=== PATIENT | male | born 1970 | race Caucasian/White ===

== ENCOUNTER 2019-05-15 22:00 | Inpatient (IN) | payer MEDICAID ==
[~2019-05-15] VITALS: Ht 167.6 cm; Wt 126.3 kg
[2019-05-15 22:08] VITALS: Ht 167.6 cm; Wt 126.3 kg
--- NOTE | 2019-05-15 22:34 | NUR ---
PT PRESENTS TO ER TODAY WITH C/O OF LEG PAIN THAT STARTED YESTERDAY MORNING. PT DENIES ANY INJURY TO HIS LEGS. PT NOTED TO BE SWOLLEN TO BOTH LEG WITH +2 PITTING EDEMA. CSM INTACT DISTALLY TO BOTH LOWER EXTERMITIES. PT ALSO REPORTS A HX OF ASTHMA AND STATES HE HAS RECENTLY RAN OUT OF HIS SYMBICORT AND NOW COMPLAINING OF SOB. LUNG SOUNDS CLEAR IN ALL MACIEL WITH AUSCULTATION. PT PLACED ON 2L OF O2 VIA NC. PT RATES HIS LEG PAIN A 6/10. PT IS A/O X4. RESP ARE EQUAL AND UNLABORED. NO ACUTE DISTRESS NOTED. FAMILY AT BEDSIDE.
[2019-05-15] MEDS ORDERED: METFORMIN HYD1000 M2 PO (23:03)
[2019-05-15] MEDS ORDERED: FLA500 PO (23:03)
[2019-05-15] MEDS ORDERED: SYMBICORT1 AE3 INH (23:05)
[2019-05-15] MEDS ORDERED: LISINOPRIL2.5 MG PO (23:06)
[2019-05-15 23:50] LABS: PLATELET COUNT 136 x10^3mcL (130-400)
[2019-05-15 23:51] LABS: BASOPHIL % 0 % (0-2); RED CELL DISTRIBUTION WIDTH 16.1 % (11.5-14.5)
--- NOTE | 2019-05-16 00:10 | NUR ---
PT SLEEPING AT THIS TIME, EQUAL CHEST RISE AND FALL NOTED. PT HYPERTENSIVE BUT ALL OTHER VITALS WNL. NO ACUTE DISTRESS NOTED.
[2019-05-16 00:14] LABS: BILIRUBIN TOTAL 0.4 mg/dL (0.20-1.00); CARBON DIOXIDE 26.9 mmol/L (21-32); FREE T4 1.07 ng/dL (0.76-1.46); POTASSIUM SERUM 5.5 mmol/L (3.5-5.1); TOTAL PROTEIN, SERUM 6.5 g/dL (6.4-8.2)
[2019-05-16 00:17] LABS: CREATININE SERUM 5.8 mg/dL (0.7-1.3)
[2019-05-16 01:20] LABS: UA SPECIFIC GRAVITY 1.015 (1.005-1.035); microscopic required? YES; urine erythrocyte 1+ (NEGATIVE)
--- NOTE | 2019-05-16 01:38 | NUR ---
PT SLEEPING AT THIS TIME BUT EASILY AROUSED WHEN OBTAINING VITALS, THEN RIGHT BACK TO SLEEP. PT TACHY AT 104, ALL OTHER VITALS WNL. NO ACUTE DISTRESS NOTED.
--- NOTE | 2019-05-16 01:48 | NUR ---
CALLED TO BEDSIDE BY PT, PT WAKE AND REQUESTING MEDICATION FOR THE PAIN IN HIS LEGS. MD NUNN MADE RAYMUNDO. AWAITING ORDERS.
--- NOTE | 2019-05-16 02:45 | NUR ---
REPORT GIVEN TO CLEMENCIA GARZA TO ASSUME CARE OF PT.
--- NOTE | 2019-05-16 03:04 | NUR ---
RECEIVED FROM ER, TRANSPORTED VIA [facility]. AWAKE AND ALERT, ORIENTED TO NAME, PLACE, TIME AND SITUATION. SPEECH CLEAR. WAS ABLE TO STAND FROM GUERNEY AND WALK A FEW STEPS TO BED. NEEDED MINIMAL ASSISTANCE FOR SAFETY. PT'S SISTER BROUGHT PT'S WHEELCHAIR UP. ON 2LPM OF O2 VIA NC. LUNG SOUNDS DIMINISHED TO BASES. NOTED +4 EDEMA TO LOWER EXTREMITIES. DUSKY COLORED SKIN NOTED TO LOWER EXTREMITIES. DRY SCABS NOTED TO TRUNK, ARMS AND LEGS. ORIENTED TO ROOM ENVIRONMENT, INSTRUCTED ON USE OF CALL LIGHT TO CALL FOR ASSISTANCE. PLACED WITHIN EASY REACH.
--- NOTE | 2019-05-16 03:36 | NUR ---
DR. HORAN STATED PT MAY HAVE SANDWICH, 1 DIET SODA AND LIMITED WATER. DR. HORAN IN PT'S ROOM TALKING TO PT.
[2019-05-16 03:41] VITALS: BP 139/85
--- NOTE | 2019-05-16 04:10 | NUR ---
INFORMED DR. OSEGUERA PT STATED HE NEEDS HIS INHALER.
--- NOTE | 2019-05-16 04:11 | NUR ---
PT'S SISTER WAS PROVIDED WITH RECLINER.
[2019-05-16 04:18] LABS: MAGNESIUM 1.8 mg/dL (1.8-2.4); PHOSPHOROUS 5.4 mg/dL (2.5-4.9)
[2019-05-16 04:19] VITALS: BP 139/85
--- NOTE | 2019-05-16 05:55 | NUR ---
PT IS ANGRY AND VERBALLY ABUSIVE, REFUSING ANY CARE FROM THIS NURSE. INFORMED SHEILA AGUIAR WHO WENT IN ROOM TOGETHER WITH PHOTORESIST PRINTER MK TO TRANSLATE. PT REFUSED CARE. INFORMED DR MENDOZA WHO IS IN PT'S ROOM TO SPEAK WITH PT.
--- NOTE | 2019-05-16 06:09 | NUR ---
NURSE MELCHOR ABLE TO CONVINCE PT TO TAKE KAYAXELATE, REFUSED CALCIUM GLUCONATE.
--- NOTE | 2019-05-16 06:10 | NUR ---
DR. MENDOZA IN PT'S ROOM AWARE PT REFUSED CALCIUM GLUCONATE
--- NOTE | 2019-05-16 07:11 | NUR ---
ENDODRSED PT TO NURSE KAI
--- NOTE | 2019-05-16 07:15 | NUR ---
PT REFUSED EKG AT THIS TIME, WILL CONT. TO MONITOR.
--- NOTE | 2019-05-16 07:30 | NUR ---
PT ENDORSE TO ME THIS MORNING. LAYING IN BED RESTING. AA/O X4, CHILEAN SPK. BREATHING EVEN AND UNLABORED ON 2L NC NO ACUTE RESP DISTRESS OR SOB NOTED. TELE 19 SR NOTED, HR 98 NOTED/ DENIES ANY CP OR PRESSURE AT THIS TIME. BOWLE SOUNDS ACTIVE IN ALL FOUR QUADS NOTED/ ABD DISTENDED. RIGHT CHEST TUNNELED CATH NOTED FOR HD. PER PT USES WHEELCHAIR AT HOME/ GEN WEAKNESS NOTED. MULT SCABS NOTED TRUNK, ARMS AND LEGS FISHING FLOATS ASSEMBLER. IV TO RAC INTACT AND PATENT, HEPLOCKED. CALL LIGHT IN REACH. FAMILY AT BEDSIDE. WILL CONTINUE TO MONITOR.
[2019-05-16 08:17] VITALS: BP 148/84
--- NOTE | 2019-05-16 08:37 | NUR ---
PATIENT REFUSED ECHOCARDIOGRAM-STATES HE DOESN'T WANT IT
--- NOTE | 2019-05-16 08:41 | NUR ---
SILVER BRAZER AT BEDSIDE TRYING TO PREFORM ECHO, PT REFUSING STATING "HE DONT NEED IT AND IT WAS DONT IN ER" TRIED TO EDUCATE PT ON THE IMPORTANCE OF HAVING THE ECHO DONE, REFUSE. PT ALSO REFUSING ALL AM MEDS. DR. DEJESUS MADE AWARE.
--- NOTE | 2019-05-16 12:11 | NUR ---
[facility], DR. DEJESUS AWARE.
--- NOTE | 2019-05-16 12:50 | NUR ---
CHANGED CENTRAL LINE DRESG TO TUNNELED UPPER RIGHT CHEST/ STERILE TECHNIQUE APPLIED.
--- NOTE | 2019-05-16 12:52 | NUR ---
CATHETER TIP INTACT, NO REDNESS OR SELLING NOTED TO SITE.
--- NOTE | 2019-05-16 12:52 | NUR ---
WALKED IN PATIENTS ROOM FOUND HIS IV TO THE RAC ON THE BED, PT IS REFUSING TO ALLOW US TO RE-INSERT ONE AT THIS TIME, DR. DEJESUS AND TEAM AWARE.
--- NOTE | 2019-05-16 13:04 | NUR ---
PT REFUSING NOON VS AND USV, DR. BARRERA MADE AWARE. PT STATED "I DIDNT SLEEP ALL LAST NIGHT AND NURSES AND DOCTORS KEPT COMING IN THE ROOM" WILL CONTINUE TO MONITOR.
--- NOTE | 2019-05-16 14:08 | NUR ---
PT ASKED TO GO OUTSIDE AND GET SUN, STATED TO PT THAT IS NOT ALLOWED DUE TO TELE. PT REQUESTED TO SPEAK TO AT BEDSIDE SIDE WITH DR. DEJESUS EXPLAINING THE RISK AND BENEFITS OF LEAVING AMA, PT REFUSE TO LISTEN TO DR DEJESUS EXPLANATION. PT SIGNED AMA FORM AND WILL CALL NURSING STATION WHEN HE IS READY TO LEAVE.
--- NOTE | 2019-05-16 15:10 | NUR ---
REMOVED TELE 19 AND RETURNED.
--- NOTE | 2019-05-16 15:10 | NUR ---
ONSITE CASE MANAGERDeny ESTES WHEELED PT TO FRONT OF HOSPITAL, SISTER BY HIS SIDE. ASKED PT AGAIN AND TRIED TO EXPLAIN TO PT WHY HE SHOULD STAY AND NOT LEAVE AMA, PT REFUSE. PT DENIES ANY CP OR PRESSURE. BREATHING EVEN AND UNLABORED ON RA, NO ACUTE RESP DISTRESS OR SOB NOTED. PT LEFT AMA.
== END 2019-05-16 15:09 | disposition left against medical advice (07) | DRG 194 ==
LOC: ED 22:00 → DU 05-16 02:13
PROVIDERS: Emergency Medicine; ADMIT Internal Medicine
DX: I13.2 Hypertensive heart and chronic kidney disease with heart failure and with stage 5 chronic kidney disease, or end stage renal disease (principal); E11.22 Type 2 diabetes mellitus with diabetic chronic kidney disease; E44.0 Moderate protein-calorie malnutrition; N18.6 End stage renal disease; E11.65 Type 2 diabetes mellitus with hyperglycemia; E87.5 Hyperkalemia; E66.01 Morbid (severe) obesity due to excess calories; Z68.42 Body mass index [BMI] 45.0-49.9, adult; I50.9 Heart failure, unspecified; F17.210 Nicotine dependence, cigarettes, uncomplicated; D63.1 Anemia in chronic kidney disease; J45.909 Unspecified asthma, uncomplicated; H54.8 Legal blindness, as defined in USA; Z79.84 Long term (current) use of oral hypoglycemic drugs; Z99.2 Dependence on renal dialysis
CPT/HCPCS: 36600; 82962; 83880; 84439; G0378; J1940; J2270; J2543; J7620; Q0092

== ENCOUNTER 2019-05-16 21:22 | Inpatient (IN) | payer MEDICAID ==
[~2019-05-16] VITALS: Ht 167.6 cm; Wt 126.3 kg
[~2019-05-16 21:22] MED LIST: FLA500 PO; LISINOPRIL2.5 MG PO; METFORMIN HYD1000 M2 PO; SYMBICORT1 AE3 INH
[2019-05-16 21:29] VITALS: Ht 167.6 cm; Wt 126.3 kg
--- NOTE | 2019-05-16 21:38 | NUR ---
PT REFUSING TO SIT UP IN HIGH NEW'S IN [facility], CONSTANTLY TRYING TO LAY DOWN. RN KASIA EXPLAINED TO PT BENEFITS OF SITTING UP IN HIGH NEW'S. PT VERBALIZED UNDERSTANDING, HOWEVER, PT INSISTING ON LAYING ON HIS SIDE. COMPROMISED WITH PT, PT CURRENTLY SITTING ON SIDE OF BED. O2 SAT NOTED AROUND 88% ON RA, PT PLACED ON MASK. RT AT BEDSIDE FOR BREATHING TREATMENT.
--- NOTE | 2019-05-16 21:38 | NUR ---
PT AT BEDSIDE EXPRESSED PT HAS CONTNUED TO REFUSE DIALYSIS FOR THE PAST WEEK AND HAS BEEN NON COMPLIANT WITH MEDICATIONS.
--- NOTE | 2019-05-16 22:05 | NUR ---
LAB AT BEDSIDE IV STARTED TO R FOREARM. PT SITTING COMFORTABLY ON SIDE.
[2019-05-16 22:13] LABS: BASOPHIL % 0.7 % (0-2); PLATELET COUNT 154 x10^3mcL (130-400)
[2019-05-16 22:14] LABS: RED CELL DISTRIBUTION WIDTH 16.5 % (11.5-14.5)
--- NOTE | 2019-05-16 22:14 | NUR ---
MEDICATIONS GIVEN ORDERED. PT SITTING IN UPRIGHT POSTION. VITALS AT BEGINGING OF MEDICAION 184/93B P-108 R-23 99 ON 3L NC
[2019-05-16 22:27] LABS: BILIRUBIN TOTAL 0.4 mg/dL (0.20-1.00); CALCIUM 7.9 mg/dL (8.5-10.1); POTASSIUM SERUM 5.4 mmol/L (3.5-5.1)
[2019-05-16 22:31] LABS: ALBUMIN 3.2 g/dL (3.4-5.0)
[2019-05-16 22:32] LABS: CREATININE SERUM 6.5 mg/dL (0.7-1.3)
--- NOTE | 2019-05-16 22:58 | NUR ---
MEDICATION GIVEN PER ORDER. VITALS SABLE AFTER ADMINISTRATION 142/94 P-91 R12 100 ON 2L NC NO S/S OF DISTRESS
--- NOTE | 2019-05-16 23:16 | NUR ---
PT IS ALERT AND LYING ON RIGHT SIDE. PT CONINTUES TO BE DEFIANT WITH REQUEST FORM NURSE ABOUT PROPER PLACMENT OF NASAL CANULA AND SITTING FOR PROPER EXPANTION OF CHEST. PT HAS TO BE REMIND MULTIPLE TIMES ABOUT CONTINUED COOPEARTION WITH STAFF FOR PROPER TREATMENT. PT IS ORIENTED AND REFUSED TO COMPLY WITH REQUEST FOR PROPER BREATHING. PT CONTINUES TO REQUEST PAIN MEDICATION AND STATES "CAN I HAVE MORPHINE" DR GÓMEZ NOTIFIED. WILL CONTINE TO MONITOR
--- NOTE | 2019-05-17 00:07 | NUR ---
PT REQUESTING FOR URINAL AND WATER. PT GIVEN URINAL. PER NGUYEN ROSE FOR PT TO HAVE WATER.
--- NOTE | 2019-05-17 01:04 | NUR ---
PT GIVEN MEDICATIONS ORDER AND EDUCATED ABOUT TRANSFER TO UNIT. PT VERBALIZED HE WANTED WATER. EDUCATED ABOUT S/S OF CHF AND FLUID OVERLOAD. PT VEBRLIAZED UNDERTANDING. VITALS STABLE. WILL CONTINUE TO MONITOR
--- NOTE | 2019-05-17 01:19 | NUR ---
REPORT GIVEN TO ANITA TO ASSUME CARE OF PT
[2019-05-17 01:27] LABS: AMPHETAMINE QUAL UR NONE DETECTED (See below)
--- NOTE | 2019-05-17 01:35 | NUR ---
RECIEVED PT FROM ED VIA GURNEY. PT WAS ABLE TO AMBULATE TO BEDSIDE WITH ASSIST. PT HAS POOR VISION ON BOTH EYES. PT IS ON TELE # 19 SR HR 94. PT IS A/O X4. PT HAS WEAK PULSES AND 2+ EDEMA BLE. PT BREATHING IS EVEN AND UNLABORED. PT IS ON 2L NC SAT 99,LUNG SOUNDS ARE WHEEZES BILATRALLY. PT HAS ACTIVE BOWEL SOUNDS, ABD DISTENDED AND SOFT. LAST BM 7. PT IS OLIGURIC, HD TO R UPPER CHEST RUDY CATH, UNDRESED. PT STATES LAST HD WAS OVER A WEEK AGO. PT HAS LFA FISTULA NOT ACTIVE. HD MWF. PT HAS GENERAL WEAKNESS, WHEECHAIR AT BEDSIDE. PT HAS SCABS TO TRUNK, BLE, BUE OPEN TO AIR. PT DENIES PAIN AT THIS TIME. PT DENIES CHEST PAIN OR SOB AT THIS TIME. PT IV TO RAC S/L CDI. PT BEEN RUDE TO STAFF AND NONOMPLIENT WITH CARE. CALL LIGHT IS WITHIN REACH, WILL CONTINUE TO MONITOR.
--- NOTE | 2019-05-17 02:00 | NUR ---
PT BP IS 168/84. DR. VASQUEZ MADE AWARE. WILL ANTICIPATE CARE.
[2019-05-17 02:09] VITALS: BP 159/89
[2019-05-17 02:13] VITALS: BP 168/84
[2019-05-17 05:26] VITALS: BP 161/87
--- NOTE | 2019-05-17 05:32 | NUR ---
PT REFUSED ORDERED LAB DRAWS THIS MORNING. SPOKE WITH PT, HE REFUSES LAB DRAWN FROM RAC AREA AND REQUESTING SOMEONE ELSE TO COME BACK LATER.
--- NOTE | 2019-05-17 06:27 | NUR ---
PT HARLDY SLEPT THROUGH THE NIGHT REMAINS RESTLESS AND ANXIOUS AND EASILY AGITATED. PT IS ON TELE #19 SR. PT BREATHING IS EVEN AND UNLABORED. NO RESP DISTRESS NOTED. PT IS ON 3L NC O2 SAT 99%. PT IS AMBULATORY WITH ASSIST, WHEEL CHAIR AT BEDSIDE. PT IS OLIGURIC, HD MWF, LAST HD WAS OVER A WEEK AGO. PT HAS RIGHT UPPER CHEST RUDY CATH CDI, IV TO RFA S/L CDI, LEFT FISTULA NOT ACTIVE. PT HAS SCABS TO TRUNK, DERIC, BLE. PT IS ON STRICT I/O 2L DAY. PT INTAKE WAS 350 ML. PT WAS RUDE TO STAFF AND NOT COOPERATIVE WITH NURSING CARE.
[2019-05-17 06:55] LABS: BASOPHIL % 0.5 % (0-2); PLATELET COUNT 164 x10^3mcL (130-400)
[2019-05-17 06:56] LABS: RED CELL DISTRIBUTION WIDTH 16.5 % (11.5-14.5)
[2019-05-17 07:16] LABS: CALCIUM 8.2 mg/dL (8.5-10.1); CARBON DIOXIDE 25.5 mmol/L (21-32); MAGNESIUM 1.9 mg/dL (1.8-2.4)
[2019-05-17 07:24] LABS: POTASSIUM SERUM 5.7 mmol/L (3.5-5.1)
[2019-05-17 07:25] LABS: CREATININE SERUM 6.8 mg/dL (0.7-1.3)
--- NOTE | 2019-05-17 07:26 | NUR ---
PAGED RESIDENT WITH [facility] LAB VALUES OF POTASSIUM AT 5.7, BUN AT 77, AND CREATININE AT 6.8. RECEIVED CALL BACK AND AWAITING ORDERS.
--- NOTE | 2019-05-17 08:00 | NUR ---
RECIEVED PATIENT ASLEEP BUT ARROUSABLE. HE IS YELLING OUT AT THE STAFF FOR ASSISTANCE AND WANTED A WARM BLANKET. BROUGHT THAT TO HOME AND HE REQUESTED MEDICATION TO BE GIVEN WITH APPLE JUICE AND COOKIE. HE WASW ACCEPTING A GHRAM CRACKER. HE HAD REQUESTED MORPHINE WELL. WHEN BROUGHT HIS MEDICATION HE WANTED TO TAKE ONLY THE SMALL HALVES OF THE MEDICAITON AND REFUSED THE REST FRO NOW AND STATE SIT IS HIS STOMACH UPSET AND COME BACK IN TWO HOURS. HE REFUSED THE MORPHINE WELL. HE WAS ADVISED OF THE THROACENTESIS AND THE PUBLIC WORKS COMMISSIONER AND REFUSED BOTH AND ADVISE THE RADIOLOGY OF THIS. GUANAKO HAS BEEN NOTED LEGALLY BLIND AND NON COMPLIANT WITH CARE AND HIS ROUTINE FOR DIALYSIS. SISTER ASLEEP AT [facility]. PATIENT SEENS TO HAVE THE NEED TO DIRRECDT ALL ASPECT OF HIS CARE TO HIS TIME TABLE. PATEINT REFUSED TO ALLOW STAFF TO REPLACE THE DRESSING TO THE TUNNEL CATH THE PATIEN MICAELA REMOVED. TRASH FOUND ON THE FLOOR OF ALCHOHOL WIPES AND COTTON BALLS FROM THE BLOOD DRAWS. HE HAS EDEMA TO THE LOWER EXTREMTS OF 2-3 PLUS AND PATIBRITTNEY TAHS SCATTERED SCABBED AREAS FROM ITCHING BUT PER THE ENTRY LEVEL AUTOMOTIVE TECHNICIAN HAD REFUSED THE BENADRYL WHEN OFFERED. CRISTINA IS NON AMBUATYORY AND WITH WHEELCHAIR AT BEDSIDE. DUE TO BLIDNESS CRISTINA TNEEDS ASSIST WITH MOST ADLS. REFUSED TO EAT WHEN TRAY WAS BROUGHT AND HE WANTS TO HOLD FOR NOW. WILL CONTINUE TO ENCOURAGE COMPLIANCE WITH CARE.
[2019-05-17 08:05] VITALS: BP 141/73
--- NOTE | 2019-05-17 11:33 | NUR ---
P.T. NOTES RECEIVED P.T. EVAL ORDER; Pt SLEEPY IN BED, WOKE UP W/ P.T., SPEAKS VIETNAMESE, SISTER SLEEPING IN RECLINING CHAIR IN ROOM; Pt DECLINED TO PARTICIPATE W/ P.T. TODAY, STATES HE WANTS TO SLEEP & GET SOME REST, EXPLAINED BENEFITS OF THERAPY & RISKS OF BEDBOUND, Pt STILL DECLINED; HD MWF, LEG BLIND, USES HOME O2 2L PER CHART; Pt REQUESTED LIGHTS OFF; APPRECIATIVE, CALL [place], TABLE, PHONE IN REACH, BED ALARM ON, O2 N/C ON; RN AWARE; FF UP WHEN MORE PARTICIPATIVE. PER CHART:05/16/19 XR CHEST:OPACIFICATION R HEMITHORAX; 05/17/19 (-)UDS; Hgb=8.4; CREATININE=6.8; SERUM POTASSIUM=5.7; REFUSED BiPAP IN ED.
[2019-05-17 12:34] VITALS: BP 138/78
--- NOTE | 2019-05-17 13:48 | NUR ---
PATIENT SIGNED FOR AMA AND DISAGREED ON THE RATIONAL FOR ALL THE CARE GIVEN. HE REFUSED THE DIALYSIS AND WANTS A BANNANA BAG. THE RESIDENT INFORMED HIM ON THE NEGATIVE ASPECTS OF THIS AND DOING WITHOUT DIALYSIS AND HE PLAN OF CARE. GUANAKO HAD BEEN SEEN ALSO BY THE AUTOMATED WEAVER AND HE TOO HAD ISSUE WITH THE PATIENT NONCOMPLAINCE. THE PATIENT WHEN ASKED WAS HESITANT ON TELLLING THE RESIDENT WHERE HE HAS HAD DIALYSIS AND WHERE HE HAD BEEN LIVING PRIOR. HE STATE SHE WAS FROM [facility] AND THEN WHEN ASKED [place] HE STATES HE HAS BEEN HEADING FOR [facility] TO LIVE. HE HAD ALSO STATED HE HAD DIALYSIS AT [facility] AND WAS ALSO SEEN AT [facility]. HE HAD DIFFERENT VERSIONS OF HIS NAME USED AT [place]. PATIENT HAS BEEN REFUSING A DRESSING TO EH TUNNEL PORT SITE AND HAS BEEN REFUSING BENADRYL FOR ITCHING AND HE HAS REFUSED SOME OF HIS MEDICATION SUCH COLACE AND LASIX AND THE MORPHINE WELL THIS AM. CRISTINA THAS NOT BEEN HAVING ISSUES WITH FOOD AND ATE WELL AT EACH MEAL. PATIENT HAS BEEN NOTED OF THE DANGERS FOR LEAVING AMA. PATIENT HAS BEEN STABLE AT THIS TME THE EDEMA OF THE LEGS HAS NOT IMPROVED THOUGH AND AND HE DID SNOT TAKE THE LASIX OFFERED. AWAITING DRESSING FOR DISCHARGE HOME REMOVE DTHE IV AND TELE INDICATED.
--- NOTE | 2019-05-17 14:48 | NUR ---
Discount pharmacy card and list to low cost medical clinics given to patient by Jessica.
== END 2019-05-17 13:45 | disposition left against medical advice (07) | DRG 194 ==
LOC: ED 21:22 → DU 05-17 00:01 → EDBEDREQ 05-17 00:07 → DU 05-17 01:19
PROVIDERS: Emergency Medicine; ADMIT Internal Medicine
DX: I13.2 Hypertensive heart and chronic kidney disease with heart failure and with stage 5 chronic kidney disease, or end stage renal disease (principal); J96.02 Acute respiratory failure with hypercapnia; E87.5 Hyperkalemia; E44.0 Moderate protein-calorie malnutrition; E11.22 Type 2 diabetes mellitus with diabetic chronic kidney disease; N18.6 End stage renal disease; I50.9 Heart failure, unspecified; D63.1 Anemia in chronic kidney disease; H54.8 Legal blindness, as defined in USA; L29.9 Pruritus, unspecified; I89.0 Lymphedema, not elsewhere classified; E66.01 Morbid (severe) obesity due to excess calories; Z99.2 Dependence on renal dialysis; Z68.42 Body mass index [BMI] 45.0-49.9, adult; F17.210 Nicotine dependence, cigarettes, uncomplicated; Z79.84 Long term (current) use of oral hypoglycemic drugs
CPT/HCPCS: 36600; 83880; 85378; 94150; G0378; J1940; J2270; J2405; J3490; J7613; J7620; J7626; J7644; Q0092

== ENCOUNTER 2019-05-21 01:04 | Inpatient (IN) | payer MEDICAID ==
[~2019-05-21] VITALS: Ht 167.6 cm; Wt 126.3 kg
[2019-05-21 01:13] VITALS: Ht 167.6 cm; Wt 126.3 kg
--- NOTE | 2019-05-21 01:30 | NUR ---
PT C/O DANIEL LOWER LEG PAIN X10 DAYS. PT DESCRIBES PAIN 7/10 CRUSHING NON-RADIATING PAIN. EDEMA NOTED TO BILATERAL LOWER EXTREMETIES. CELLULITIS-LIKE RASH NOTED TO DANIEL LOWER EXTREMETIES AND ABDOMEN. PT HAS HX OF ESRD. PT RECIEVES DIALYSIS MWF. PT STS LAST DIALYSIS WAS 2 DAYS AGO. PT SEEN AT [facility] LAST NIGHT AND ADMITTED, PT LEFT AMA. PT REPORTS NO OTHER COMPLAINTS. NAD NOTED AT THIS TIME. MD AT BEDSIDE.
--- NOTE | 2019-05-21 01:47 | NUR ---
40MG IVP LASIX ADMINISTERED PER MD ORDER
--- NOTE | 2019-05-21 02:38 | NUR ---
PT RESTING IN POSITION OF COMFORT, RESPS E/U, VSS, LIGHTS DIMMED AND WARM BLANKET PROVIDED PER PT REQUEST AND COMFORT, CALL LIGHT WITHIN REACH
--- NOTE | 2019-05-21 02:42 | NUR ---
PT REQUESTING PAIN MEDICATION FOR 7/10 LEG PAIN AND C/O NAUSEA. MD DE LEON MADE AWARE
--- NOTE | 2019-05-21 03:29 | NUR ---
MEDICATION ADMINISTERED PER MD ORDER FOR PAIN AND NAUSEA
--- NOTE | 2019-05-21 03:32 | NUR ---
PT AWAKE AND ALERT, LAYING IN POSITION OF COMFORT ON RIGHT SIDE. VSS, RESPS E/U, NAD NOTED AT THIS TIME. SPOUSE AT BEDSIDE. CALL LIGHT W/IN REACH. WILL CONTINUE TO MONITOR.
--- NOTE | 2019-05-21 03:42 | NUR ---
PT O2 SAT NOTED IN THE LOW 80'S ON MONITOR IN NURSE'S STATION. UPON ENTERING ROOM PT NOTED TO BE SLEEPING. PT PLACED ON 4L O2 VIA NC. PT O2 SAT NOTED AT 97% AT THIS TIME.
--- NOTE | 2019-05-21 03:55 | NUR ---
PT SCREAMING IN GREEK FROM ROOM. WENT TO CHECK ON PT TO ASK WHY HE IS YELLING. PT STS "I WASN'T YELLING." PT ASKED WHAT IS WRONG. PT STS "THEY TOOK MY MEDICINE. OR IT FELL ON THE FLOOR." INH MEDS FOUND IN BED AND GIVEN TO PT. PT ASKED TO TURN THE NC 02 DOWN TO 2LS. O2 TURNED DOWN TO 2LS PER PT REQUEST.
--- NOTE | 2019-05-21 04:37 | NUR ---
REPORT GIVEN TO KASIA GARZA
[2019-05-21] MEDS ORDERED: LASIX40 MG PO (04:52)
[2019-05-21 05:51] VITALS: BP 144/68
--- NOTE | 2019-05-21 06:00 | NUR ---
PT REQUESTING TO SPEAK TO TOBY MAKER. WHEN ASKED WHAT HE WOULD LIKE TO SPEAK TO HER ABOUT PT STATES HE WILL SPEAK WITH TOBY MAKER ABOUT IT. COMPUTER EDUCATION PROFESSOR MARILYN PULIDO AND TOBY MAKER NOTED. PER SUMANTH, SHE WILL SPEAK TO PT UPSTAIRS.
--- NOTE | 2019-05-21 06:14 | NUR ---
PT REPORT CALLED TO ACM GARZA TO ASSUME PT CARE.
--- NOTE | 2019-05-21 06:39 | NUR ---
PT TRANSFERRED TO [facility] BY [facility] BY MYSELF AND JANET EMT. PT ON CM FOR TRANSFER. PT AOX4, RESP EVEN AND UNLABORED, NO ACUTE DISTRESS NOTED. PT ACCEPTED BY CAM GARZA TO ASSUME PT CARE. PT TRANSFERRED FROM [facility] TO BED WITHOUT INCIDENT.
--- NOTE | 2019-05-21 06:54 | NUR ---
RECEIVED PT FROM ED VIA WAQAS, ACCOMPANIED BY RN. ORIENTED PT TO ROOM AND SURROUNDING. TELE#25 PLACED ON PT. 4LNC SATURATING ON 94%. VS: BP:151/124(133) HR: 103BPM RR: 20. PT REFUSED TEMPORAL/ORAL TEMP. RUDY CATH ON RIGHT CHEST WITH NO DRESSING. PT REFUSED TO APPLY DRESSING. PT CURRENTLY SITTING ON CHAIR. REFUSED TO GO TO BED. FAMILY AT BEDSIDE. WILL ENDORSE TO ONCOMING SHIFT.
--- NOTE | 2019-05-21 07:25 | NUR ---
RECEIVED PATIENT FROM PRESSER MACHINE NURSE. PATIENT IS AWAKE, ALERT AND ORIENTED. TELE#25: PATIENT REFUSING TELE AT THIS TIME. DR PINZON NOTIFIED. PATIENT IS ON 4L NC, RESP E/U. C/O MILD SOB, HOB ELEVATED. RT PROTOCOL. FALL PREC IN PLACE. CALL LIGHT WITHIN EASY REACH. WILL CONTINUE PLAN OF CARE.
--- NOTE | 2019-05-21 07:39 | NUR ---
PATIENT REFUSED TO HAVE CT SCAN COMPLETED. PER PATIENT HE JUST HAD ONE LAST WEEK AT [facility]. WILL NOTIFY DR PINZON.
[2019-05-21 08:05] VITALS: BP 138/77
--- NOTE | 2019-05-21 08:18 | NUR ---
PATIENT REFUSES ULTRASOUND FOR PLEURAL EFFUSION EVAL AT THIS TIME. PER PATIENT TEST WAS COMPLETED RECENTLY AT [facility]. DR PINZON TO BE NOTIFIED.
[2019-05-21 08:44] LABS: MAGNESIUM 1.7 mg/dL (1.8-2.4); PHOSPHOROUS 5.6 mg/dL (2.5-4.9)
[2019-05-21 08:52] LABS: CHOLESTEROL/HDL RATIO 4.1
[2019-05-21 09:35] LABS: T3 TOTAL 0.56 ng/mL
[2019-05-21 10:01] VITALS: BP 135/67
[2019-05-21 10:33] LABS: FREE T4 0.91 ng/dL (0.76-1.46); FREE THYROXINE INDEX 1.9 ug/dL (1.4-4.5); T4(THYROXINE) 5.7 ug/dL (4.7-13.3)
--- NOTE | 2019-05-21 11:20 | NUR ---
DR PINZON NOTIFIED OF THE FOLLOWING: PATIENT REFUSAL OF CT CHEST, US EVAL FOR PLEURAL EFFUSION, ECHO, AND HEALTH PSYCHOLOGIST. PATIENT RIGHT CHEST WALL RUDY CATH NOTED TO HAVE NO DRESSING AROUND SITE, PATIENT REFUSES FOR CLEANING OF SITE OR FOR DRESSING TO BE PLACED. DR PINZON AWARE. STRICT I/O'S IN PLACE: 1200/DAY. PATIENT MADE AWARE OF RESTRICTION.
--- NOTE | 2019-05-21 13:34 | NUR ---
TELE REMOVED AND RETURNED TO BILINGUAL SPANISH INBOUND SALES AT THIS TIME.
--- NOTE | 2019-05-21 13:36 | NUR ---
ECHO PENDING PT. STATS HE HAD ECHO DONE AT [place] 5 DAYS AGO.
[2019-05-21 13:42] VITALS: BP 160/82
--- NOTE | 2019-05-21 15:27 | NUR ---
Discount pharmacy card and list to low cost medical clinics given to patient by Jessica.
--- NOTE | 2019-05-21 16:57 | NUR ---
PATIENT REFUSED ULTRASOUND OF BLE.
--- NOTE | 2019-05-21 17:33 | NUR ---
DIALYSIS NURSE AT BEDSIDE TO COMPLETE DIALYSIS AT THIS TIME.
--- NOTE | 2019-05-21 18:56 | NUR ---
DIALYSIS NURSE REMIANS AT BEDSIDE FOR HD. PATIENT RESTING EASY. VS STABLE. RESP EVEN AND UNLABORED ON 4L NC. PATIENT CARE TO BE ENDORSED TO DESK ATTENDANT NURSE.
--- NOTE | 2019-05-21 20:21 | NUR ---
PT CURRENTLY RESTING IN BED, NO ACUTE DISTRESS. REFUSING MAJORITY OF ASSESSMENT. A/O X4. POOR VISION NOTED. NO TELE, MED/SURG, DENIES CHEST PAIN. BLE EDEMA +3. O2 VIA NASAL CANULA AT 4L, DENIES SOB. LAST BM 05/20/19. CURRENTLY RECEIVING HD, RUDY CATH NOTED TO RIGHT CHEST. GENERALIZED WEAKNESS. SCATTERED SCABS NOTED TO BLE/BUE. IV PATENT AND INTACT. BED IN LOWEST POSITION, SIDE RAILS UP X2, CALL LIGHT WITHIN REACH. WILL CONTINUE TO MONITOR.
--- NOTE | 2019-05-21 22:06 | NUR ---
PT REFUSING LASIX AND BLOOD GLUCOSE CHECKS. NO ACUTE DISTRESS. HD COMPLETED, 4L OUT. WILL CONTINUE TO MONITOR.
--- NOTE | 2019-05-21 23:55 | NUR ---
PT C/O SOB, REQUESTING BREATHING TREATMENT, RT NOTIFIED FOR TREATMENT. WILL CONTINUE TO MONITOR.
[2019-05-22 04:16] VITALS: BP 117/57
--- NOTE | 2019-05-22 06:06 | NUR ---
PT SLEPT PERIODICALLY THROUGHOUT NIGHT, NO ACUTE DISTRESS. ALL NEEDS MET AND ATTENDED TO. PT NONCOMPLIANT WITH O2, FREQUENTLY FOUND NOT WEARING NASAL CANULA. IV PATENT AND INTACT. MEDICATED PAIN PER EMAR. BED IN LOWEST POSITION, SIDE RAILS UP X2, CALL LIGHT WITHIN REACH. WILL ENDORSE CARE TO ONCOMING NURSE.
[2019-05-22 06:29] LABS: IRON 38 ug/dL (65-170); TOTAL IRON BINDING CAPACITY 245 ug/dL (250-450)
[2019-05-22 06:43] LABS: BASOPHIL % 0.6 % (0-2); PLATELET COUNT 183 x10^3mcL (130-400)
[2019-05-22 06:48] LABS: CALCIUM 8.5 mg/dL (8.5-10.1); CARBON DIOXIDE 26.2 mmol/L (21-32); MAGNESIUM 1.9 mg/dL (1.8-2.4); PHOSPHOROUS 5.4 mg/dL (2.5-4.9); POTASSIUM SERUM 4.7 mmol/L (3.5-5.1)
[2019-05-22 06:50] LABS: RED CELL DISTRIBUTION WIDTH 16.6 % (11.5-14.5)
[2019-05-22 06:53] LABS: CREATININE SERUM 4.6 mg/dL (0.7-1.3)
--- NOTE | 2019-05-22 07:14 | NUR ---
REPORT TAKEN FROM AVIATION ELECTRICIAN NURSE AT THE BEDSIDE, PT DID NOT AWAKE FOR REPORT, CHEST RISE AND FALL OBSERVED, PT'S SISTER SLEEPING AT THE BEDSIDE WELL. SALINE LOCKED AT THIS TIME, WILL CONTINUE TO MONITOR.
[2019-05-22 08:56] VITALS: BP 132/59
[2019-05-22 09:15] VITALS: BP 132/59
--- NOTE | 2019-05-22 14:55 | NUR ---
PT COMPLETED HD AT THIS TIME, HD NURSE REPORTED 4L REMOVED. PT TOLERATED WELL
--- NOTE | 2019-05-22 15:50 | NUR ---
PT VERBALIZED THAT HE WANTS TO LEAVE THE HOSPITAL, PROVIDER PAGED TO SIGN AMA FORM.
--- NOTE | 2019-05-22 16:02 | NUR ---
PT SIGNED AMA FORM, I WITNESSED THE PT SIGN THE PAPER WORK, AND THE DOCTOR ADVISED THE PT OF THE RISKS INVOLVED WITH LEAVING THE HOSPITAL BEFORE THE COMPLETION ON TREATMENT. PT VERBALIZED UNDERSTANDING.
--- NOTE | 2019-05-22 16:24 | NUR ---
PT LEAVING THE HOSPITAL AT THIS TIME, VIA WHEELCHAIR IN THE CARE OF HIS SISTER.
--- NOTE | 2019-05-23 07:41 | NUR ---
ECHOCARDIOGRAM NOT DONE-DISCHARGED
== END 2019-05-22 16:23 | disposition left against medical advice (07) | DRG 194 ==
LOC: ED 01:04 → MU 04:55 → DU 04:55 → MU 14:03 → DU 17:39 → MU 05-22 06:41
PROVIDERS: Internal Medicine; Internal Medicine Nephrology; ADMIT Internal Medicine
DX: I13.2 Hypertensive heart and chronic kidney disease with heart failure and with stage 5 chronic kidney disease, or end stage renal disease (principal); J96.00 Acute respiratory failure, unspecified whether with hypoxia or hypercapnia; N18.6 End stage renal disease; E11.22 Type 2 diabetes mellitus with diabetic chronic kidney disease; J90 Pleural effusion, not elsewhere classified; Z99.81 Dependence on supplemental oxygen; I50.9 Heart failure, unspecified; E44.0 Moderate protein-calorie malnutrition; E87.5 Hyperkalemia; E11.319 Type 2 diabetes mellitus with unspecified diabetic retinopathy without macular edema; H54.8 Legal blindness, as defined in USA; D63.1 Anemia in chronic kidney disease; J45.909 Unspecified asthma, uncomplicated; F17.210 Nicotine dependence, cigarettes, uncomplicated; Z99.2 Dependence on renal dialysis; Z99.3 Dependence on wheelchair; Z68.38 Body mass index [BMI] 38.0-38.9, adult; Z79.84 Long term (current) use of oral hypoglycemic drugs; Z91.14 Patient's other noncompliance with medication regimen; Z91.15 Patient's noncompliance with renal dialysis; Z53.20 Procedure and treatment not carried out because of patient's decision for unspecified reasons
CPT/HCPCS: 82962; 83880; 84439; 99406; G0378; J1644; J1940; J2270; J2405; J7620; J7626; Q0092

== ENCOUNTER 2019-05-25 00:24 | Emergency (ER) | payer MEDICAID ==
[~2019-05-25] VITALS: Ht 172.7 cm; Wt 136.1 kg
[~2019-05-25 00:24] MED LIST changes: +LASIX40 MG PO
[2019-05-25 00:35] VITALS: Ht 172.7 cm; Wt 136.1 kg
[2019-05-25 01:30] LABS: CALCIUM 8.5 mg/dL (8.5-10.1); CARBON DIOXIDE 29.5 mmol/L (21-32); CREATININE SERUM 3.4 mg/dL (0.7-1.3); POTASSIUM SERUM 4.3 mmol/L (3.5-5.1)
[2019-05-25 01:34] LABS: ALBUMIN 3.2 g/dL (3.4-5.0); BILIRUBIN TOTAL 0.4 mg/dL (0.20-1.00); TOTAL PROTEIN, SERUM 7.1 g/dL (6.4-8.2)
[2019-05-25 01:36] LABS: BASOPHIL % 0.8 % (0-2); PLATELET COUNT 238 x10^3mcL (130-400); RED CELL DISTRIBUTION WIDTH 16.4 % (11.5-14.5)
[2019-05-25 04:45] VITALS: BP 163/87
== END 2019-05-25 04:45 | disposition home or self-care (01) ==
LOC: ED 00:24
PROVIDERS: Emergency Medicine
DX: L03.116 Cellulitis of left lower limb (principal); L03.115 Cellulitis of right lower limb; L03.311 Cellulitis of abdominal wall; I89.0 Lymphedema, not elsewhere classified; I13.11 Hypertensive heart and chronic kidney disease without heart failure, with stage 5 chronic kidney disease, or end stage renal disease; E11.22 Type 2 diabetes mellitus with diabetic chronic kidney disease; N18.6 End stage renal disease; Z99.2 Dependence on renal dialysis
CPT/HCPCS: 36415; 83880; J0690; J1200; J2270; J3010; J7620; Q0092

== ENCOUNTER 2019-05-26 22:09 | Inpatient (IN) | payer MEDICAID ==
[~2019-05-26] VITALS: Ht 167.6 cm; Wt 109.8 kg
[2019-05-26 22:50] VITALS: Ht 167.6 cm; Wt 109.8 kg
--- NOTE | 2019-05-26 23:05 | NUR ---
PT PRESENTED TO ED FOR BLE PAIN AND HEADACHE X 1 DAY, NAUSEA X 2 DAYS, AND BLQ ABDOMINAL PAIN X 5 DAYS. PT WAS BIB AMBULANCE BUT WAS SENT TO LOBBY TO AWAIT TRIAGE. PT BROUGHT TO ROOM ORTHO VIA WHEELCHAIR IN NAD. BREATHING EVEN AND UNLABORED. PT AMBULATED FROM WHEELCHAIR TO GURNEY WITH MINIMAL ASSISTANCE. +4 EDEMA NOTED TO BLE. PT STATES HE LAST RECIEVED DIALYSIS 6 DAYS AGO. PT SATING AT 89% ON RA AND WAS PLACED ON 2 L NC, PT SATING AT 100 % ON 2 L. CM AND [address] FAMILY AT BEDSIDE. SIDE RAILS UP FOR PT SAFETY. INSTRUCTED TO CALL FOR ASSISTANCE. BLANKET PROVIDED FOR COMFORT. AWAITING MSE. WILL CONTINUE TO MONITOR.
--- NOTE | 2019-05-26 23:14 | NUR ---
ED ASSESSMENT COMPLETED BY ME.
[2019-05-27 00:05] LABS: BASOPHIL % 0.6 % (0-2); PLATELET COUNT 230 x10^3mcL (130-400)
[2019-05-27 00:07] LABS: RED CELL DISTRIBUTION WIDTH 16.4 % (11.5-14.5)
[2019-05-27 00:25] LABS: BILIRUBIN TOTAL 0.5 mg/dL (0.20-1.00); CALCIUM 8.4 mg/dL (8.5-10.1); CARBON DIOXIDE 31.1 mmol/L (21-32); MAGNESIUM 1.7 mg/dL (1.8-2.4); POTASSIUM SERUM 4.7 mmol/L (3.5-5.1); TOTAL PROTEIN, SERUM 6.5 g/dL (6.4-8.2)
--- NOTE | 2019-05-27 01:06 | NUR ---
IV ZOSYN INITIATED PER MD ORDER PT VERBALIZED UNDERSTANDING OF MEDICATION PRIOR TO ADMINISTRATION. PT CURRENTLY REQUESTING PAIN MEDICATION. PT STATES, "I NEED PAIN MEDICATION THROUGH MY IV, ONLY MORPHINE 4MG THROUGH THE IV WORKS FOR ME." MADE AWARE.
--- NOTE | 2019-05-27 01:13 | NUR ---
DR FLOOD AT BEDSIDE TO SPEAK WITH PT REGARDING PLAN OF CARE FOR ADMISSION. PT AGREED TO PLAN OF CARE.
--- NOTE | 2019-05-27 01:13 | NUR ---
PT REQUESTING FOR SANDWICH AND JUICE, PER DR REMIGIO CEDILLO FOR PT TO HAVE PO INTAKE AT THIS TIME. PT SITTING UP IN HIGH NEW'S TO EAT.
--- NOTE | 2019-05-27 02:20 | NUR ---
PT ASKING FOR JUICE, OKAY PER DR FLOOD TO PROVIDE PT WITH JUICE AT THIS TIME
--- NOTE | 2019-05-27 02:27 | NUR ---
REPORT CALLED TO NAYLA GARZA
--- NOTE | 2019-05-27 02:45 | NUR ---
PT TRANSFERED TO TELE BED B AT THIS TIME IN NAD, BREATHING EVEN AND UNLABORED. PT A&0X4, SPEAKING FULL CLEAR SENTENCES. PT TRANSFERED VIA GURNEY ACCOMPANIED BY MYSELF, [facility] EMT, AND FAMILY MEMBER. PT VERBALIZED UNDERSTANDING OF DC INSTRUCTIONS AND MEDICATION REVIEW. IV FLUIDS ENDORSED TO NAYLA GARZA.
[2019-05-27 03:20] VITALS: BP 149/89
--- NOTE | 2019-05-27 03:20 | NUR ---
RECIEVED PT FROM ED NURSE VERA VIA STEFANO. PT IS A/O X4. PT IS ON TELE#9 ST HR 107. PT BUE WEAK PULSES, BLE FAINT PULSES PRESENT. EDEMA NOTED TO BLE +4, WARM AND ASHEN IN COLOR. PT LUNG SOUNDS DIMINISHED, PT ON O2 2 L NC, O2 SAT 99%. PT HAS ACITVE BOWEL SOUNDS, LAST BM 05/26. PT DENIES ANY PAIN AT THIS TIME. PT HAS HD M/W/F. LAS HD WAS 6 DAYS AGO. AV SHUNT TO LA INACTIVE. PT HAS RUDY CATH TO R UPPER CHEST CDI. PT HAS GEBERAL WEAKNESS. AMBULATES WITH ASSIST. PT HAS VISUAL DEFIECITS. PT HAS LESIONS/BUMPS TO ABD AREA. NO DRAINAGE NOTED, OPEN TO AIR. PT IV TO CDI.NO RESP DISTRESS NOTED.WILL CONT TO MONITOR. CALL LIGHT WITHIN REACH.
[2019-05-27 03:27] VITALS: BP 149/89
--- NOTE | 2019-05-27 05:08 | NUR ---
PT ARRIVED FROM ER. PT WAS AWAKE SITTING AT EDGE OF BED. PT DENIES ANY ANY PAIN AT THIS TIME. PT HAS BEEN NONCOMPLAINT WITH NURSING CARE. PT IS ON TELE #9 ST HR 107. NO RESP DISTRESS NOTED. PT IV TO LH CDI. PT QIUNTON CATH TO RIGHT UPPER CHEST CDI. AV SHUNT TO LA IN ACTIVE. HD IS M/W/F. PT IS NOT COOPERATIVE WITH NURSING CARE. WILL CONT TO MONITOR AND ENDORSE CARE TO AM NURSE.
--- NOTE | 2019-05-27 06:23 | NUR ---
PT REFUSED AM LABS THIS MORNING.
--- NOTE | 2019-05-27 06:58 | NUR ---
PT C/O OF ITCHING. CALLED DR SU. ANTICIPATING CALL BACK. WILL ENDORSE TO DAY SHIFT.
--- NOTE | 2019-05-27 07:05 | NUR ---
RECEIVED BEDSIDE REPORT FROM KILN OPERATOR NURSE AT THIS TIME. PATIENT RESTING IN BED. SISTER AT BEDSIDE. 2L NC IN PLACE BREATHING EVEN AND UNLABORED. NO RESPIRATORY DISTRESS NOTED. PATIENT DENIES CHEST PAIN/PRESSURE AT THIS TIME. NON FUNCTIONAL AV SHUNT TO LA. RUDY CATH NOTED TO RIGHT UPPER CHEST WITH NO DRESSING. PATIENT OFFERED DRESSING AT THIS TIME. PATIENT REFUSING DRESSING. IV PATENT AND INTACT. ALL QUESTIONS AND CONCERNS ADDRESSED. ALL NEEDS ATTENDED TO. WILL CONTINUE TO MONITOR
[2019-05-27 09:20] VITALS: BP 149/78
--- NOTE | 2019-05-27 09:59 | NUR ---
ALL MORNING MEDICATIONS ADMINISTERED. PATIENT TOLERATED WELL. NO ADVERSE EFFECTS NOTED. ALL NEEDS ATTENDED TO. WILL CONTINUE TO MONITOR
--- NOTE | 2019-05-27 12:05 | NUR ---
PATIENT BLOOD SUGAR 69 AT THIS TIME. NO INSULIN COVERAGE REQUIRED. PATIENT OFFERED APPLE JUICE. ALL NEEDS ATTENDED TO. WILL CONTINUE TO MONITOR
[2019-05-27 12:43] VITALS: BP 151/81
--- NOTE | 2019-05-27 13:25 | NUR ---
PATIENT RESTING COMFORTABLY IN BED AT THIS TIME. PATIENT REFUSING THORACENTESIS AT THIS TIME. RADIOLOGY MADE AWARE. RECEIVED DIALYSIS ORDERS AT THIS TIME. PAGED RAIN. AWAITING CALL BACK.
--- NOTE | 2019-05-27 13:25 | NUR ---
RECEIVED ORDERS FOR US GUIDED THORACENTESIS. PER PATIENT'S NURSE, HE IS REFUSING AT THIS TIME.
--- NOTE | 2019-05-27 15:20 | NUR ---
PATIENT REQUESTING TO LEAVE AGAINST MEDICAL ADVICE AT THIS TIME. INFORMED DR MENDOZA. DR MENDOZA AT BEDSIDE REVIEWING RISKS OF LEAVING AGAINST MEDICAL ADVICE. PER PATIENT, VERBALIZES UNDERSTANDING OF LEAVING, BUT IS STILL REQUESTING TO LEAVE AGAINST MEDICAL ADVICE. ALL QUESTIONS AND CONCERNS ADDRESSED. ALL NEEDS ATTENDED TO. PATIENT SIGNED AMA FORM AND ASSITED DOWN VIA WHEELCHAIR ACCOMPANIED BY SISTER AND CREDIT NEGOTIATOR.
--- NOTE | 2019-05-28 07:28 | NUR ---
ECHOCARADIOGRAM NOT DONE-DISCHARGED
--- NOTE | 2019-05-28 07:59 | NUR ---
WOUND CONSULT NOT DONE, PT. DISCHARGED.
== END 2019-05-27 15:19 | disposition left against medical advice (07) | DRG 194 ==
LOC: ED 22:09 → DU 05-27 01:15
PROVIDERS: Emergency Medicine; ADMIT Internal Medicine
DX: I13.2 Hypertensive heart and chronic kidney disease with heart failure and with stage 5 chronic kidney disease, or end stage renal disease (principal); J90 Pleural effusion, not elsewhere classified; E11.22 Type 2 diabetes mellitus with diabetic chronic kidney disease; E44.0 Moderate protein-calorie malnutrition; E11.42 Type 2 diabetes mellitus with diabetic polyneuropathy; N18.6 End stage renal disease; E11.9 Type 2 diabetes mellitus without complications; B96.4 Proteus (mirabilis) (morganii) as the cause of diseases classified elsewhere; B96.1 Klebsiella pneumoniae [K. pneumoniae] as the cause of diseases classified elsewhere; D63.1 Anemia in chronic kidney disease; I50.9 Heart failure, unspecified; R06.03 Acute respiratory distress; L08.9 Local infection of the skin and subcutaneous tissue, unspecified; L30.4 Erythema intertrigo; H54.8 Legal blindness, as defined in USA; J45.909 Unspecified asthma, uncomplicated; F17.210 Nicotine dependence, cigarettes, uncomplicated; Z99.2 Dependence on renal dialysis; Z68.27 Body mass index [BMI] 27.0-27.9, adult; Z79.84 Long term (current) use of oral hypoglycemic drugs; Z99.3 Dependence on wheelchair; Z91.14 Patient's other noncompliance with medication regimen; Z16.12 Extended spectrum beta lactamase (ESBL) resistance; Z53.29 Procedure and treatment not carried out because of patient's decision for other reasons
CPT/HCPCS: 82962; 83880; 94150; G0378; J1644; J2270; J2543; J3370; J7030; J7620; Q0092

== ENCOUNTER 2019-05-28 12:26 | Inpatient (IN) | payer MEDICAID ==
[~2019-05-28] VITALS: Ht 167.6 cm; Wt 116.7 kg
--- NOTE | 2019-05-28 12:38 | NUR ---
BIB MEDICS FROM [facility] FROM [place]. PT WENT THERE SEEKING DIALYSIS SINCE HE MISSED IT YESTERDAY, BUT WHILE THERE WENT OUTSIDE & THEN PER PT THEY WOULDN'T LET HIM BACK IN. PT WAS JUST RELEASED FROM HERE INPATIENT YESTERDAY. PT HAS OWN W/C. PT IS SCRATCHING CONSTANTLY. PT'S FEET, ANKLES, & LEGS ARE MASSIVELY SWOLLEN. PT DENIES SCROTAL SWELLING. PT HERE BECAUSE HE WANTS DIALYSIS, BECAUSE HIS LEGS ARE SWOLLEN & HURT, & BECAUSE HE IS ITCHY. FIRE STATED PT HAD GENERALIZED WEAKNESS BUT PT DENIES. PT'S ROOM AIR SAT IS 87-88%. O2 CANNULA REPLACED W/ SAT 95% ON 2 L/MIN. PT PLACED ON FULL MONITORS.
--- NOTE | 2019-05-28 12:39 | NUR ---
PT REQUESTED DIFFERENT SHEET, STATES BLUE SHEET CAUSES A RASH. SHEET COVERED W/ WHITE SHEET.
--- NOTE | 2019-05-28 12:45 | NUR ---
MSE BY DR. REMY.
--- NOTE | 2019-05-28 13:08 | NUR ---
PCXR IN PROGRESS.
--- NOTE | 2019-05-28 13:10 | NUR ---
PT C/O LINENS SMELLING BAD. REQUESTED NEW LINENS. PT INFORMED THAT ALL LINENS COME FROM SAME LAUNDRY & WILL ALL SMELL THE SAME.
--- NOTE | 2019-05-28 13:12 | NUR ---
INQUIRING ABOUT CONTACT ISOLATION SIGN (POSSIBLE SCABIES PER DR. REMY). X-RAY TECH EXPLAINED IN [place] THAT IT IS A PRECAUTION D/T HIS ITCHY SKIN.
--- NOTE | 2019-05-28 13:15 | NUR ---
IN REVIEWING YESTERDAY'S NOTES, PT SIGNED OUT AMA YESTERDAY, REFUSING THORACENTESIS & LEAVING AMA PRIOR TO RECEIVING ORDERED DIALYSIS.
--- NOTE | 2019-05-28 13:19 | NUR ---
RECEIVED PATIENT IN ROOM 3. PER REPORT PATIENT PRESENTED TO ER WITH C/O LEG PAIN, MISSED DIALYSIS AT WHEN HE WAS ADMITTED YESTERDAY, BUT LEFT AMA, PATIENT WAS SEEN HERE IN ER YESTERDAY BUT AMA'D WELL. PATIENT IS AAO X 3 (NAME, DATE, AND CONDITION). EYES - JALEESA. MUCUS - PINK. SR ON MONITOR, HR = 96. LUNGS - CTA. ABD OBESE, BS PRESENT X 4 QUADRANTS. B/L UPPER EXT PULSES PALPABLE. B/L LOWER EXT WITH NON-PITTING EDEMA 4+. PERMACATH NOTED ON RIGHT SUBCLAVIAN WITH NO DRESSING/SUTURE. WILL CONTINUE TO MONITOR.//FEB RN
--- NOTE | 2019-05-28 13:19 | NUR ---
CXR DONE AT BEDSIDE.//FEB RN
--- NOTE | 2019-05-28 13:52 | NUR ---
PERMACATH CLEANED AND TEGADERM/CLEAR FILM APPLIED ONTO PERMACATH TO SECURE LINE. PATIENT TOLERATED PROCEDURE, DENIES ANY PAIN AT THIS TIME.//FEB RN
[2019-05-28 13:58] LABS: BASOPHIL % 0.9 % (0-2); PLATELET COUNT 219 x10^3mcL (130-400)
[2019-05-28 13:59] LABS: RED CELL DISTRIBUTION WIDTH 16.1 % (11.5-14.5)
[2019-05-28 14:26] LABS: BILIRUBIN TOTAL 0.4 mg/dL (0.20-1.00); CARBON DIOXIDE 29.2 mmol/L (21-32); POTASSIUM SERUM 4.8 mmol/L (3.5-5.1); TOTAL PROTEIN, SERUM 6.3 g/dL (6.4-8.2)
[2019-05-28 14:31] LABS: ALBUMIN 2.9 g/dL (3.4-5.0); CREATININE SERUM 6.4 mg/dL (0.7-1.3)
--- NOTE | 2019-05-28 15:25 | NUR ---
ATTEMPTED TO PUT HEPLOCK ON PATIENT, BUT PATIENT REFUSED.//APR RN
--- NOTE | 2019-05-28 16:31 | NUR ---
REPORT GIVEN TO GREG SALAS FOR ROOM 241B. PATIENT AND SPOUSE MADE AWARE OF ADMIT TO ROOM 241B. PATIENT/SPOUSE VERBALIZED UNDERSTANDING, NO QUESTIONS AT THIS TIME//APR RN
[2019-05-28 17:06] VITALS: BP 141/77
--- NOTE | 2019-05-28 17:21 | NUR ---
RECEIVED PT FROM ER, PT ADMIT FOR RIGHT PLEURAL EFFUSION. ANASARCA, PT IS DROWSY, BUT A/O X4, WHILE AWAKE, LUNG SOUND DIM DANIEL. DENY ANY SOB, PT IS ON 2L/MIN O2 VIA NC. PO2 95%, PT IS ON TELE 21, NSR, DENY ANY CHEST PAIN OR DISCOMFORT, BOWEL SOUND PRESENT ALL 4 QUADRANTS, DISTENTED. PEDAL PULSE PRESENT BOTH FEET, WEAK. +3 EDEMA BLE. IV T RIGHT FA, NO LEAKING, NO INFILTRATION. ALL ADLS ASSIST, ALL NEED MET, CALL LIGHT IN REACH, MARY JO CONTINUE TO MONITOR.
--- NOTE | 2019-05-28 17:25 | NUR ---
RECEIVED PT FROM ER, PT ADMIT FOR RIGHT PLEURAL EFFUSION. ANASARCA, PT IS DROWSY, BUT A/O X4, WHILE AWAKE, LUNG SOUND DIM DANIEL. DENY ANY SOB, PT IS ON 2L/MIN O2 VIA NC. PO2 95%, PT IS ON TELE 21, NSR, DENY ANY CHEST PAIN OR DISCOMFORT, BOWEL SOUND PRESENT ALL 4 QUADRANTS, DISTENTED. PEDAL PULSE PRESENT BOTH FEET, WEAK. +3 EDEMA BLE. IV T RIGHT FA, NO LEAKING, NO INFILTRATION. RUDY CATH AT RIGHT UPPER CHEST. PT STATE LAST DIALYSIS 4 DAYS AGO. ALL ADLS ASSIST, ALL NEED MET, CALL LIGHT IN REACH, MARY JO CONTINUE TO MONITOR.
[2019-05-28 17:51] VITALS: BP 141/77
--- NOTE | 2019-05-28 17:51 | NUR ---
UNABLE TO PULL OUT THE MEDICATION BENADRL FROM SYSTEM. PT CAME UP THE FLOOR 1641, PAGE TO REORDER THE BENADRYL. WAITING FOR CALL BACK.
--- NOTE | 2019-05-28 18:40 | NUR ---
POOR APPETITE; HAD 2 BITES DINNER. NO N/V. NO VOID. NO BM SINCE ADMISION. AT BED SIDE.
--- NOTE | 2019-05-28 19:45 | NUR ---
RECEIVED AWAKE AND VERBALLY RESPONSIVE. ABLE TO MAKE NEEDS KNOWN. SKIN WARM AND DRY TO TOUCH. RUDY CATH TO RIGHT CHEST FOR GHD ACCESS. DR JOHNSON GAVE ORDERS FOR HD IN AM, HD NURSE AWARE, ON TELE #21 WITH NSR . DENIES ANY CHEST PAIN/DISCOMFORT. WILL CONTINUE TO MONITOR .
--- NOTE | 2019-05-28 21:25 | NUR ---
C/O SEVERE PAIN ON BLE 0N SCALE 10/10. MORPHINE 2MG IVP PRN MEDICATION. INSTRUCTED TO REPOSITION IN BED, ABLE TO MOVE HIMSELF IN BED. MORPHINE 2MG IVP PRN MEDICATION. WILL CONTINUE TO MONITOR.
[2019-05-28 21:41] VITALS: BP 140/64
--- NOTE | 2019-05-28 23:00 | NUR ---
PT VERY UNCOOPERATIVE WITH PALN OF CARE, DOES NOT FOLLOW INSTRUCTIONS. THROW TELE BOXIN THE FLOOR . EXPLAINED THE IMPORTANCE OF KEEPING TELEBOX , BUT NO AVAIL. VERBALLY ABUSISVE TO THE STAFFS,
--- NOTE | 2019-05-29 00:28 | NUR ---
BENADRYL 25MG IVP GIVEN ORDERED FOR GENERALIZED BODY ITCHING . KEPT CLEAN AND DRY. PT STILL TRYING TO REMOVE TELEBOX, PT CLAIMED VERY UNCOMFORTABLE WITH THE LEADS, EXPLAINED THE IMPORTANCE OF KEEPING THE LEADS ON, PT VERBALIZED UNDERSTANDING.
--- NOTE | 2019-05-29 02:25 | NUR ---
EYES CLOSED, NO FACIAL GRIMACING, APPARENTLY ASLEEP SOUNDLY, RESPONSIVE TO TACTILE STIMULI. CALL LIGHT WITHIN REACH.
--- NOTE | 2019-05-29 05:10 | NUR ---
BLOOD SUGAR CHECK 56MG/DL, PT REFUSED BLOOD SUGAR TO BE REPEATED VIA FINGERSTICK BS, PT REFUSED D50 IVP PER PROTOCOL. CLAIMED IT CAUSES SEVERE VOMTING AFTER D50 IVP, PREFERS APPLE JUICE WITH SUGAR AND SANDWICH, [facility] PROVIDED TO THE PATENT. WILL RECHECK BS IN 30MINS.
--- NOTE | 2019-05-29 05:28 | NUR ---
C/O SEVERE GENERALIZED BODY PAIN ON SCALE 10/10, MORPHINE 2MG IVP GIVEN PRN MEDICATION. ASSISTED IN REPOSITIONING FOR COMFORT. KEPT CLEAN LAV[place]IA. CONSENT FOR HD SIGNED .
[2019-05-29 05:44] VITALS: BP 142/80
--- NOTE | 2019-05-29 07:05 | NUR ---
RECEIVED PATIENT FROM WAD COMPRESSOR OPERATOR ADJUSTER NURSE. PATIENT IS RESTING WITH BOTH EYES CLOSED, AROUSABLE. PATIENT IS REFUSING TELE AT THIS TIME, DR NERI TO BE NOTIFIED. ON 2L NC, RESP E/U. RUDY CATH NOTED TO RIGHT CHEST WALL, SCHEDULED FOR HD TODAY. IV NOTED TO RFA, SALINE LOCKED, NO S/S ERYTHEMA AT SITE. CALL LIGHT WITHIN EASY REACH. WILL CONTIUE PLAN OF CARE.
[2019-05-29 08:18] VITALS: BP 132/63
[2019-05-29 08:48] LABS: BASOPHIL % 0.5 % (0-2); PLATELET COUNT 214 x10^3mcL (130-400)
[2019-05-29 09:02] LABS: RED CELL DISTRIBUTION WIDTH 16.3 % (11.5-14.5)
--- NOTE | 2019-05-29 09:02 | NUR ---
DIALYSIS NURSE AT BEDSIDE TO COMPLETE HD.
[2019-05-29 09:18] LABS: CALCIUM 8.3 mg/dL (8.5-10.1); CARBON DIOXIDE 24.4 mmol/L (21-32); MAGNESIUM 1.9 mg/dL (1.8-2.4); PHOSPHOROUS 6.8 mg/dL (2.5-4.9)
[2019-05-29 09:24] LABS: CREATININE SERUM 7.3 mg/dL (0.7-1.3)
[2019-05-29 11:39] VITALS: BP 131/70
--- NOTE | 2019-05-29 15:54 | NUR ---
PHYSICAL THERAPY NOTE ATTEMPTED FOR PHYSICAL THERAPY EVAL, PATIENT REFUSED AT THIS TIME
[2019-05-29 16:15] VITALS: BP 145/67
--- NOTE | 2019-05-29 18:28 | NUR ---
PATIENT RESTING EASY WITH BOTH EYES CLOSED, AROUSABLE. RESP E/U ON 2L NC. PATIENT CARE TO BE ENDORSED TO APPLIED EXERCISE PHYSIOLOGIST NURSE.
--- NOTE | 2019-05-29 19:20 | NUR ---
RECIEVED PT IN NO ACUTE DISTRESS. MED SURG. AOX4. BREATHING E/U ON NC @ 2L. DENIES SOB. EDEMA NOTED TO BLE. ABD DISTENDED/SOFT. RUDY CATH WITH TEGADERM NOTED TO RCW, SITE WITHOUT REDNESS/SWELLING. RASH TO BLE, ABD, AND GROIN. DENIES PAIN. IV TO RFA, NO REDNESS/SWELLING. SISTER AT BEDSIDE. BED IN LOWEST POSITION, 2 SIDE RAILS UP, CALL LIGHT IN REACH. INSTRUCTED TO CALL FOR ASSISTANCE.
[2019-05-29 21:16] VITALS: BP 141/71
--- NOTE | 2019-05-30 01:45 | NUR ---
NOTIFIED DR. ROBLEDO OF R GROIN WOUND CX + PROTEUS MIRABILIS.
--- NOTE | 2019-05-30 02:38 | NUR ---
RESTING IN BED WITH EYES CLOSED. BREATHIG E/U. NO ACUTE DISTRESS NOTED. WILL CONTINUE TO MONITOR.
--- NOTE | 2019-05-30 06:13 | NUR ---
NO C/O SOB OVERNIGHT. MEDICATED WITH MORPHINE FOR GENERALIZED BODY PAIN. NO ACUTE DISTRESS NOTED. WILL ENDORSE TO ONCOMING RN.
--- NOTE | 2019-05-30 06:15 | NUR ---
ASSIGNED NURSE RUIZ MADE AWARE ABOUT PATIENT REQUEST FOR BENADRLY FOR ITCHINESS, PATIENT SEEN SCRATCHING BACK.
--- NOTE | 2019-05-30 06:45 | NUR ---
DR. MENDOZA MADE AWARE OF PT REQUEST FOR IV BENADRYL. PT CURRENTLY RESTING IN BED WITH EYES CLOSED. NO ACUTE DISTRESS NOTED.
[2019-05-30 06:55] LABS: PLATELET COUNT 210 x10^3mcL (130-400)
[2019-05-30 07:02] LABS: RED CELL DISTRIBUTION WIDTH 16.2 % (11.5-14.5)
[2019-05-30 07:08] LABS: CALCIUM 8.1 mg/dL (8.5-10.1); CARBON DIOXIDE 28.8 mmol/L (21-32); MAGNESIUM 1.8 mg/dL (1.8-2.4); PHOSPHOROUS 5.6 mg/dL (2.5-4.9); POTASSIUM SERUM 4.2 mmol/L (3.5-5.1)
[2019-05-30 07:12] LABS: CREATININE SERUM 5.3 mg/dL (0.7-1.3)
--- NOTE | 2019-05-30 07:15 | NUR ---
RECEIVED PATIENT FROM SALES AND BUSINESS DEVELOPMENT MANAGER NURSE. PATIENT IS AWAKE, ALERT AND ORIENTED. ON 2L NC, RESP E/U. RUDY CATH NOTED TO RIGHT CHEST WALL WITH NO S/S ERYTHEMA AT SITE, PATIENT REFUSES DRESSING TO BE APPLIED. STRICT I/O'S IN PLACE, 1200ML/DAY. IV NOTED TO RIGHT FOREARM, SALINE LOCKED, NO S/S ERYTHEMA AT SITE. CALL LIGHT WITHIN EASY REACH. WILL CONTINUE PLAN OF CARE.
[2019-05-30 08:10] VITALS: BP 107/87
--- NOTE | 2019-05-30 10:50 | NUR ---
DIALYSIS NURSE AT BEDSIDE TO COMPLETE DIALYSIS.
[2019-05-30 11:15] VITALS: BP 110/83
[2019-05-30] MEDS ORDERED: CIP500 PO (13:02)
[2019-05-30 14:10] VITALS: BP 110/83
--- NOTE | 2019-05-30 14:16 | NUR ---
DIALYSIS COMPLETE AT THIS TIME. 3L OUT PER DIALYSIS NURSE.
--- NOTE | 2019-05-30 14:56 | NUR ---
WOUND CARE EVALUATION NOTE: REASON FOR EVALUATION: MULTIPLE RASHES SKIN ASSESSMENT DONE WITH THIS 48 Y/O MALE PT ADMITTED FROM HOME TO [facility] [place]. VISIT AT BED SIDE, INFORMATION OBTAINED FROM AND PT. SKIN IS WARM AND DRY, CHRONIC MULTIPLE DRY SCABS TO TRUNK, ARMS AND LEGS. BLE NO HAIR GROWTH.BILATERAL DORSAL PEDAL PULSES PRESENT AND NORMAL. FUNGAL NAILS X 10 TOES. PLAN OF CARE DISCUSSED WITH PRIMARY RN AND PT. PT. VERBALIZES UNDERSTANDING. INTEGUMENTARY: -XEROSIS TO MULTIPLE RASHES WITH SCABS TO UPPER ARMS AND LOWER LEGS -PRURITUS TO ABDOMINAL WALL, AND R/L GROINS WITH MOIST SKIN RECOMMENDATIONS: -APPLY HYDRAGUARD TO SCABS TO UPPER ARMS AND LOWER LEGS BID AND LEAVE IT OPEN TO AIR -CLEANSE ABDMINAL WALL WITH SOAP AND WATER AND APPLY THIN LAYER OF ANTIFUNGAL CREAM BID AND COVERED BY A FOLDED PILLOW CASES IN THE AREA -OFFLOAD BILATERAL HEELS BY PLACING PILLOWS UNDER CALVES UNLESS OTHERWISE CONTRAINDICATED -CONTINUE TO FOLLOW RD RECOMMENDATIONS ALL ABOVE RECOMMENDATIONS DISCUSSED WITH PRIMARY RN PLEASE CONTACT WOUND CARE NURSE FOR ANY QUESTION
--- NOTE | 2019-05-30 15:15 | NUR ---
PATIENT GIVEN ALL DC PAPERWORK AT THIS TIME. ALL NEW PRESCRIPTIONS GIVEN TO PATIENT. ALL QUESTIONS ANSWERED REGARDING DC AT THIS TIME. PATIENT SIGNED DC PAPERWORK. PAITENT INSTRUCTED TO GET DRESSED AND COLLECT BELONGINGS. PATIENT REQUESTING TAXI VOUCHER, OVEN LOADER TO SPEAK WITH PATIENT. WILL CONTINUE TO MONITOR.
--- NOTE | 2019-05-30 15:52 | NUR ---
TYLENOL GIVEN FOR MILD BODY ACHE. DC'D HOME WITH FAMILY IN NO DISTRESS. AWAKE, ALERT AND ORIENTED.
--- NOTE | 2019-05-30 16:00 | NUR ---
PATIENT DC'D HOME AT THIS TIME. AWAKE, ALERT AND ORIENTED. VS STABLE. SISTER AT BEDSIDE TO ASSIST PATIENT WITH BELONGINGS AND TRANSPORTATION VIA WHEELCHAIR. TAXI VOUCHER PROVIDED TO PATIENT AND SISTER. PATIENT REFUSED WOUND PICTURES AT TIME OF DC. PATIENT TAKEN DOWN TO LOBBY BY SHENG GIBBS.
[2019-05-31 08:17] VITALS: Ht 167.6 cm; Wt 116.7 kg
== END 2019-05-30 15:52 | disposition home or self-care (01) | DRG 194 ==
LOC: ED 12:26 → DU 15:35 → MU 15:35 → DU 16:42 → MU 05-29 22:27
PROVIDERS: Emergency Medicine; ADMIT Internal Medicine
PROC: 5A1D70Z Performance of Urinary Filtration, Intermittent, Less than 6 Hours Per Day (ICD-10-PCS; principal; 2019-05-29)
PROC: 5A1D70Z Performance of Urinary Filtration, Intermittent, Less than 6 Hours Per Day (ICD-10-PCS; 2019-05-30)
DX: I13.2 Hypertensive heart and chronic kidney disease with heart failure and with stage 5 chronic kidney disease, or end stage renal disease (principal); J96.21 Acute and chronic respiratory failure with hypoxia; J91.8 Pleural effusion in other conditions classified elsewhere; E44.0 Moderate protein-calorie malnutrition; E11.22 Type 2 diabetes mellitus with diabetic chronic kidney disease; E11.42 Type 2 diabetes mellitus with diabetic polyneuropathy; N18.6 End stage renal disease; I50.9 Heart failure, unspecified; Z99.81 Dependence on supplemental oxygen; E11.65 Type 2 diabetes mellitus with hyperglycemia; E66.01 Morbid (severe) obesity due to excess calories; I89.0 Lymphedema, not elsewhere classified; L08.89 Other specified local infections of the skin and subcutaneous tissue; B96.4 Proteus (mirabilis) (morganii) as the cause of diseases classified elsewhere; L30.4 Erythema intertrigo; H54.8 Legal blindness, as defined in USA; D63.1 Anemia in chronic kidney disease; F17.210 Nicotine dependence, cigarettes, uncomplicated; Z68.39 Body mass index [BMI] 39.0-39.9, adult; Z99.3 Dependence on wheelchair; Z83.3 Family history of diabetes mellitus; Z79.84 Long term (current) use of oral hypoglycemic drugs; Z91.14 Patient's other noncompliance with medication regimen; Z91.15 Patient's noncompliance with renal dialysis; Z53.29 Procedure and treatment not carried out because of patient's decision for other reasons
CPT/HCPCS: 82962; 83880; G0378; J0885-EC; J1200; J1644; J1940; J2270; J7620; Q0163

== ENCOUNTER 2020-01-11 12:49 | Inpatient (IN) | payer MEDICAID ==
[~2020-01-11] VITALS: Ht 167.6 cm; Wt 125.2 kg
[~2020-01-11 12:49] MED LIST changes: +CIP500 PO
[2020-01-11 13:07] VITALS: Ht 167.6 cm; Wt 125.2 kg
[2020-01-11 15:26] LABS: PLATELET COUNT 382 x10^3mcL (130-400)
[2020-01-11 15:42] LABS: BILIRUBIN TOTAL 0.3 mg/dL (0.20-1.00); CALCIUM 8.5 mg/dL (8.5-10.1); CARBON DIOXIDE 34.9 mmol/L (21-32); POTASSIUM SERUM 4.8 mmol/L (3.5-5.1); TOTAL PROTEIN, SERUM 7.2 g/dL (6.4-8.2)
[2020-01-11 15:49] LABS: CREATININE SERUM 5.8 mg/dL (0.7-1.3)
[2020-01-11 16:09] LABS: ALBUMIN 2.7 g/dL (3.4-5.0)
[2020-01-11 18:48] LABS: MONOCYTE 6 % (0-7); SEGMENTED NEUTROPHILS 65 % (37-75)
[2020-01-11 18:49] LABS: BAND NEUTROPHIL 1 % (0-10); BASOPHIL 0 % (0-2); rbc morphology (normal/abnorm) ABNORMAL (NORMAL)
[2020-01-11 18:50] LABS: ovalocyte/elliptocyte 1+
[2020-01-11 18:51] LABS: PLATELET MORPHOLOGY PLATELETS NORMAL
[2020-01-11 20:33] VITALS: BP 139/72
[2020-01-11 20:54] VITALS: BP 145/66
[2020-01-11 22:44] LABS: UA SPECIFIC GRAVITY 1.015 (1.005-1.035); microscopic required? YES; urine erythrocyte TRACE (NEGATIVE)
[2020-01-11 23:32] LABS: AMPHETAMINE QUAL UR NONE DETECTED (See below)
[2020-01-12 05:56] VITALS: BP 137/55
[2020-01-12 08:44] VITALS: BP 151/56
[2020-01-12 11:25] LABS: PLATELET COUNT 306 x10^3mcL (130-400)
[2020-01-12 11:32] LABS: CALCIUM 8.1 mg/dL (8.5-10.1); CARBON DIOXIDE 27.2 mmol/L (21-32); MAGNESIUM 1.7 mg/dL (1.8-2.4); PHOSPHOROUS 5.4 mg/dL (2.5-4.9); POTASSIUM SERUM 4.4 mmol/L (3.5-5.1)
[2020-01-12 11:33] LABS: CREATININE SERUM 5.5 mg/dL (0.7-1.3)
[2020-01-12 11:41] LABS: RED CELL DISTRIBUTION WIDTH 21.3 % (11.5-14.5)
[2020-01-12 13:07] VITALS: BP 158/73
[2020-01-12 13:09] LABS: ovalocyte/elliptocyte 1+; rbc morphology (normal/abnorm) ABNORMAL (NORMAL)
[2020-01-12 17:01] VITALS: BP 158/57
[2020-01-12 19:48] VITALS: BP 151/58
[2020-01-13 05:27] VITALS: BP 138/70
[2020-01-13 06:25] VITALS: BP 120/52
[2020-01-13 07:19] LABS: CALCIUM 8.4 mg/dL (8.5-10.1); CARBON DIOXIDE 25.9 mmol/L (21-32); MAGNESIUM 1.8 mg/dL (1.8-2.4); PHOSPHOROUS 5.5 mg/dL (2.5-4.9); POTASSIUM SERUM 4.7 mmol/L (3.5-5.1)
[2020-01-13 07:30] LABS: CREATININE SERUM 5.7 mg/dL (0.7-1.3)
[2020-01-13 07:53] VITALS: BP 153/63
[2020-01-13 08:14] LABS: BASOPHIL % 0.6 % (0-2); PLATELET COUNT 305 x10^3mcL (130-400)
[2020-01-13 10:01] LABS: RED CELL DISTRIBUTION WIDTH 21.7 % (11.5-14.5)
[2020-01-13 11:59] LABS: rbc morphology (normal/abnorm) ABNORMAL (NORMAL)
[2020-01-13 12:32] VITALS: BP 160/65
[2020-01-13 18:36] VITALS: BP 133/53
[2020-01-14 05:33] VITALS: BP 140/67
[2020-01-14 09:10] VITALS: BP 157/57
[2020-01-14 09:16] LABS: CALCIUM 8.2 mg/dL (8.5-10.1); CARBON DIOXIDE 26.9 mmol/L (21-32)
[2020-01-14 09:17] LABS: CREATININE SERUM 6.6 mg/dL (0.7-1.3)
[2020-01-14] MEDS ORDERED: CLE150 PO (09:27)
[2020-01-14] MEDS ORDERED: KEN025C TOP (09:28)
[2020-01-14 09:34] LABS: PLATELET COUNT 277 x10^3mcL (130-400)
[2020-01-14 10:04] LABS: IRON 24 ug/dL (65-170); TOTAL IRON BINDING CAPACITY 206 ug/dL (250-450)
[2020-01-14 10:06] LABS: RED CELL DISTRIBUTION WIDTH 20.9 % (11.5-14.5)
[2020-01-14 11:15] LABS: BASOPHIL 0 % (0-2)
[2020-01-14 11:18] LABS: MONOCYTE 10 % (0-7); SEGMENTED NEUTROPHILS 68 % (37-75)
[2020-01-14 11:21] LABS: BAND NEUTROPHIL 1 % (0-10)
[2020-01-14 11:22] LABS: rbc morphology (normal/abnorm) ABNORMAL (NORMAL)
[2020-01-14 12:00] VITALS: BP 145/71
[2020-01-14 16:02] VITALS: BP 138/65
[2020-01-14 18:09] VITALS: BP 138/65
[2020-01-15 06:44] LABS: CALCIUM 8.6 mg/dL (8.5-10.1); CARBON DIOXIDE 28.2 mmol/L (21-32); POTASSIUM SERUM 4.6 mmol/L (3.5-5.1)
[2020-01-15 06:45] LABS: CREATININE SERUM 4.9 mg/dL (0.7-1.3)
[2020-01-15 08:28] VITALS: BP 172/78
== END 2020-01-15 14:09 | disposition left against medical advice (07) | DRG 194 ==
LOC: ED 12:49 → DU 18:07 → MU 18:07 → DU 20:12 → MU 01-13 12:32
PROVIDERS: Emergency Medicine; Internal Medicine; ADMIT Internal Medicine
PROC: 5A1D70Z Performance of Urinary Filtration, Intermittent, Less than 6 Hours Per Day (ICD-10-PCS; principal; 2020-01-12)
PROC: 5A1D70Z Performance of Urinary Filtration, Intermittent, Less than 6 Hours Per Day (ICD-10-PCS; 2020-01-13)
PROC: 5A1D70Z Performance of Urinary Filtration, Intermittent, Less than 6 Hours Per Day (ICD-10-PCS; 2020-01-14)
DX: I13.2 Hypertensive heart and chronic kidney disease with heart failure and with stage 5 chronic kidney disease, or end stage renal disease (principal); J96.20 Acute and chronic respiratory failure, unspecified whether with hypoxia or hypercapnia; E11.21 Type 2 diabetes mellitus with diabetic nephropathy; E44.0 Moderate protein-calorie malnutrition; L03.115 Cellulitis of right lower limb; E66.01 Morbid (severe) obesity due to excess calories; E11.22 Type 2 diabetes mellitus with diabetic chronic kidney disease; N18.6 End stage renal disease; E11.3593 Type 2 diabetes mellitus with proliferative diabetic retinopathy without macular edema, bilateral; Z68.41 Body mass index [BMI] 40.0-44.9, adult; L97.918 Non-pressure chronic ulcer of unspecified part of right lower leg with other specified severity; I50.9 Heart failure, unspecified; H54.8 Legal blindness, as defined in USA; D63.1 Anemia in chronic kidney disease; F17.200 Nicotine dependence, unspecified, uncomplicated; Z91.15 Patient's noncompliance with renal dialysis; Z99.2 Dependence on renal dialysis; Z91.14 Patient's other noncompliance with medication regimen; Z79.84 Long term (current) use of oral hypoglycemic drugs; Z83.3 Family history of diabetes mellitus; Z53.29 Procedure and treatment not carried out because of patient's decision for other reasons
CPT/HCPCS: 82962; 83880; 86580; 90715; 94150; G0378; J0885-EC; J1200; J1644; J1940; J2405; J3490; J7030; J8597; Q0092; Q0163

== ENCOUNTER 2020-01-17 22:05 | Emergency (ER) | payer MEDICAID ==
[~2020-01-17] VITALS: Ht 167.6 cm; Wt 117.9 kg
[~2020-01-17 22:05] MED LIST changes: +CLE150 PO; +KEN025C TOP
[2020-01-17 22:19] VITALS: Ht 167.6 cm; Wt 117.9 kg
[2020-01-17 23:12] LABS: BASOPHIL % 1.5 % (0-2); PLATELET COUNT 234 x10^3mcL (130-400)
[2020-01-17 23:17] LABS: CALCIUM 8.8 mg/dL (8.5-10.1); CARBON DIOXIDE 25.2 mmol/L (21-32); POTASSIUM SERUM 4.6 mmol/L (3.5-5.1); RED CELL DISTRIBUTION WIDTH 21.2 % (11.5-14.5)
[2020-01-17 23:18] LABS: rbc morphology (normal/abnorm) ABNORMAL (NORMAL)
[2020-01-17 23:27] LABS: CREATININE SERUM 5.4 mg/dL (0.7-1.3)
[2020-01-18] VITALS: BP 122/80
== END 2020-01-18 00:29 | disposition home or self-care (01) ==
LOC: ED 22:05
PROVIDERS: Emergency Medicine
DX: J90 Pleural effusion, not elsewhere classified (principal); E11.22 Type 2 diabetes mellitus with diabetic chronic kidney disease; I12.0 Hypertensive chronic kidney disease with stage 5 chronic kidney disease or end stage renal disease; N18.6 End stage renal disease; D63.1 Anemia in chronic kidney disease; Z99.2 Dependence on renal dialysis
CPT/HCPCS: 36415; J0780; J1885; Q0092